=== PATIENT | male | born 1955 | race Caucasian/White ===

== ENCOUNTER 2021-05-27 07:42 | Day surgery (SDC) | payer MEDICARE ==
[2021-05-25 15:16] VITALS: BMI 22.2
[~2021-05-27 07:42] MED LIST: LACTATED RINGERS 1,000 ML IV SCH
--- NOTE | 2021-05-27 07:48 | P.GSHP ---
History of Present Illness H&P Date: 05/27/21 CHIEF COMPLAINT: Colon screen HISTORY OF PRESENT ILLNESS: The patient is a 65-year-old male who presents for colon screen. Lower endoscopy was offered for further evaluation and management. PAST MEDICAL HISTORY: Please see list. PAST SURGICAL HISTORY: Please see list. MEDICATIONS: Please see list. ALLERGIES: Please see list. SOCIAL HISTORY: No illicit drug use FAMILY HISTORY: No reports of Crohn disease or ulcerative colitis. REVIEW OF ORGAN SYSTEMS: CONSTITUTIONAL: No reports of fevers or chills. PHYSICAL EXAM: VITAL SIGNS: Stable GENERAL: Well-developed pleasant in no acute distress. HEENT: No scleral icterus. Extraocular movements grossly intact. Moist buccal mucosa. NECK: Supple without lymphadenopathy. CHEST: Unlabored respirations. Equal bilateral excursions. CARDIOVASCULAR: Regular rate and rhythm. Distal 2+ pulses. ABDOMEN: Soft, nontender, nondistended. MUSCULOSKELETAL: No clubbing, cyanosis, or edema. ASSESSMENT: 1. Colon screen. PLAN: 1. Recommend proceeding with a lower endoscopy Past Medical History Past Medical History: Prostate Disorder Additional Past Medical History / Comment(s): occ constipation, elevated PSA History of Any Multi-Drug Resistant Organisms: None Reported Past Surgical History: No Surgical Hx Reported Past Anesthesia/Blood Transfusion Reactions: No Reported Reaction Smoking Status: Never smoker - Past Family History Mother Family Medical History: No Reported History Medications and Allergies Home Medications Medication Instructions Recorded Confirmed Type Multivitamins, Thera [Multivitamin 1 tab PO DAILY 05/25/21 05/25/21 History (formulary)] Allergies Allergy/AdvReac Type Severity Reaction Status Date / Time No Known Allergies Allergy Verified 05/25/21 15:10
[2021-05-27 08:17] VITALS: TEMP 97.6
[2021-05-27] MEDS ORDERED: PROPOFOL 10 MG/ML 20 ML VIAL IV ONE (09:16)
[2021-05-27] MEDS ORDERED: LIDOCAINE 1% INJ 10MG/ML (20 ML MDV) ONE (09:16)
[2021-05-27 09:43] VITALS: RESP 16
--- NOTE | 2021-05-27 09:44 | P.PCN ---
Date of Procedure: 05/27/21 Description of Procedure: PREOPERATIVE DIAGNOSIS: Colonoscopy screening. POSTOPERATIVE DIAGNOSIS: Colonoscopy screening. Poor colonoscopy prep limiting colonoscopy Internal/external hemorrhoids, grade 3 OPERATION: Colonoscopy to the ascending colon SURGEON: Courtney Cruz MD. ANESTHESIA: MAC. INDICATIONS: The patient is a 65-year-old male who presents for his first colonoscopy. Benefits and risks were described and informed consent was obtained. DESCRIPTION OF PROCEDURE: The patient had undergone Sutab prep. The patient had been brought into the operating room and laid in the left lateral decubitus position. After adequate intravenous sedation, the rectum was examined with 2% lidocaine jelly. External hemorrhoids were encountered. The rectal tone was within normal limits. No lesions were palpated in the rectal vault. An Olympus colonoscope was advanced to the ascending colon on abdominal wall pressure. The prep was poor limiting view of the colonic mucosa due to moderate liquid stool and semisolid stool. Retroflexion of the scope demonstrated grade 3 internal hemorrhoids without active bleeding or inflammation. The colon was desufflated. The patient had tolerated the procedure well. Withdrawal time was over 6 minutes. FINDINGS: Aronchick preparation quality scale 4 (1-5) Internal hemorrhoids, grade 3 External prolapsed hemorrhoids, grade 3 Extremely poor prep limiting view of mucosa No sigmoid diverticulosis RECOMMENDATIONS: Lower endoscopy in 3 months, August 2021 due to poor prep Plan - Discharge Summary New Discharge Prescriptions: Continue Multivitamins, Thera [Multivitamin (formulary)] 1 tab PO DAILY Discharge Medication List Multivitamins, Thera [Multivitamin (formulary)] 1 tab PO DAILY 05/25/21 [History] Follow up Appointment(s)/Referral(s): Courtney Cruz MD [STAFF PHYSICIAN] - 06/15/21 Patient Instructions/Handouts: *[facility] - (Anesthesia) Endoscopy Discharge Instructions, Constipation (DC) Activity/Diet/Wound Care/Special Instructions: Because of poor prep, repeat colonoscopy in 3 months, August 2021
[2021-05-27 10:00] VITALS: BP 113/76; PULSE 72
== END 2021-05-27 10:48 | disposition home or self-care (01) ==
LOC: ORWHC2ENDO 07:42
PROVIDERS: ATTEND Surgery Plastic and Reconstructive Surgery
DX: Z12.11 Encounter for screening for malignant neoplasm of colon (principal); K64.2 Third degree hemorrhoids; K64.4 Residual hemorrhoidal skin tags; N42.9 Disorder of prostate, unspecified; K59.00 Constipation, unspecified; R97.20 Elevated prostate specific antigen [PSA]
CPT/HCPCS: J2001; J2704; G0121; 45378